=== PATIENT | male | born 1980 | race Caucasian/White ===

== ENCOUNTER 2020-05-23 15:26 | Outpatient (CLI) | payer OTHER, MEDICAID, SELFPAY ==
--- NOTE | ~2020-05-23 | CT_ITS ---
EXAMINATION: CT BRAIN W/O DATE: 05/23/2020 15:44 INDICATION: Headaches TECHNIQUE: Computed tomography (CT) of the head was performed without intravenous contrast. The dose- length product was 605.33 mGy-cm. The mA was adjusted according to patient size. Iterative reconstruc tion technique was employed. COMPARISON: CT dated 04/04/2006 FINDINGS: Normal brain parenchymal volume for age. Normal rosario-white differentiation. No acute intrac ranial hemorrhage, infarction, mass or mass effect. No ventriculomegaly or midline shift. Midline sagittal images demonstrate a normal corpus callosum, c raniovertebral junction and sella turcica. Basilar cisterns are patent. Mild mucosal thickening of the ethmoid and right maxillary sinuses. No depressed skull fractures. IMPRESSION: 1. No acute intracranial abnormality. Reviewed, dictated and finalized at location A. MONITOR
== END 2020-05-23 15:27 | disposition home or self-care (01) ==
PROVIDERS: PCP Physician Assistant; Visit Provider Nurse Practitioner Adult Health
DX: D75.1 Secondary polycythemia (principal); R51.9 Headache, unspecified
CPT/HCPCS: 70450

== ENCOUNTER 2021-04-15 16:24 | Emergency (ER) | payer OTHER, MEDICAID, SELFPAY ==
--- NOTE | 2021-04-15 16:45 | ED.URI ---
HPI - URI/Sore Throat General Chief Complaint: Upper Respiratory Infection Stated Complaint: Sore Throat,Lt Ear Pain,Eye discomfort Time Seen by Provider: 04/15/21 16:45 Source: patient, family, RN notes reviewed and old records reviewed Mode of arrival: ambulatory Limitations: no limitations History of Present Illness HPI Narrative: 41-year-old male presents to the [facility] with mom concern for thrush in his right cheek. Also complains of a sore throat. Is being worked up for acid reflux and currently takes GERD medication. Denies any chest pain or shortness of breath. States occasionally feels like he has a lump in his throat. No abdominal pain, nausea, vomiting or diarrhea. MD elicited complaint: sore throat Related Data Home Medications Medication Instructions Recorded Confirmed pantoprazole 40 mg tablet,delayed 40 mg PO BID 05/03/19 04/15/21 release cholecalciferol (vitamin D3) 10 1,000 unit PO DAILY cap 05/07/20 04/15/21 mcg (400 unit) capsule buspirone 15 mg PO DAILY 04/15/21 04/15/21 citalopram 20 mg PO DAILY 04/15/21 04/15/21 hydrocortisone 10 mg PO DAILY 04/15/21 04/15/21 Allergies Allergy/AdvReac Type Severity Reaction Status Date / Time No Known Allergies Allergy Verified 04/15/21 17:06 Review of Systems Review of Systems: All systems reviewed & are unremarkable except as noted in HPI and below Constitutional: Constitutional: Reports no additional constitutional complaints, Denies chills and Denies fever(s) Eyes: Eyes: Reports no additional eye complaints ENT: Reports as per HPI and Reports sore throat Cardiovascular: Cardiovascular: Reports no additional cardiovascular complaints and Denies chest pain Respiratory: Respiratory: Reports no additional respiratory complaints, Denies cough and Denies dyspnea Gastrointestinal: Gastrointestinal: Reports no additional gastrointestinal complaints, Denies abdominal pain, Denies nausea and Denies vomiting Musculoskeletal: Musculoskeletal: Reports no additional musculoskeletal complaints Integumentary/Breasts: Skin/Breast: Reports system reviewed and no additional complaints, except as docu Neurologic: Reports system reviewed and no additional complaints, except as documented Psychiatric: Psychiatric: Reports no additional psychiatric complaints Allergic/Immunologic: Allergic/Immunologic: Reports no additional allergic/immunologic complaints PMFSH Past Medical History Medical History (Updated 04/15/21 @ 17:10 by Sadie Stallworth) Adult hypothyroidism Back pain Hypopituitarism Lower urinary tract symptoms Osteoporosis Renal disease Testicular hypofunction Thyroid disease Surgical History Surgical History History of cholecystectomy Family History Family History Mother Family history of osteoporosis Family history of migraine headaches Family history of elevated blood lipids Grandparent Family history of blood dyscrasia Family history of migraine headaches Family history of elevated blood lipids Family history of Alzheimer's disease Diabetes mellitus Sibling Family history of mental disorder Depression Family history of migraine headaches Social History Social History Smoking status: Never smoker Spiritual care concerns: No Comments At the time of my signature, I reviewed and agree with the nursing past medical, surgical, social, and family history. There is no relevant family history pertinent to the patient complaint. Exam Const: General: no acute distress, alert and ill appearing chronically Nutritional Appearance: well nourished Orientation/consciousness: patient oriented x3 Limitations: no limitations HENMT: Head: normal to inspection Ears: hearing grossly normal bilaterally, external ears normal, TM's normal bilaterally and EAC's normal General nose exam:
[2021-04-15 16:51] VITALS: BP 131/100; PULSE 101; RESP 20; TEMP 37.1; O2SAT 100
== END 2021-04-15 17:20 | disposition home or self-care (01) ==
PROVIDERS: Emergency Provider Nurse Practitioner; PCP Physician Assistant
DX: B37.0 Candidal stomatitis (principal); K21.9 Gastro-esophageal reflux disease without esophagitis; E03.9 Hypothyroidism, unspecified; M81.0 Age-related osteoporosis without current pathological fracture
CPT/HCPCS: 87081; 87880; 99213; G0463

== ENCOUNTER 2021-04-24 01:34 | Day surgery (SDC) | payer OTHER, MEDICAID, SELFPAY ==
[2021-04-17 14:00] VITALS: BMI 22.4
--- NOTE | 2021-04-24 10:58 | WPDANESEPPF ---
Anes - Initial Pre Proc Eval Procedure: Operation Date: 04/24/21 13:00 Proposed Procedures p Esophagogastroduodenoscopy - Eugenio Latham MD Date/Time: 04/24/21 10:58 Surgeon: Eugenio Latham MD Pre Op Diagnosis: GERD Patient Data Age: 41 Gender: M Height: 1.7 m Weight: 65 kg Allergies Allergy/AdvReac Type Severity Reaction Status Date / Time No Known Allergies Allergy Verified 04/17/21 13:57 Home Medications Medication Instructions Recorded Confirmed Type pantoprazole 40 mg tablet,delayed 40 mg PO BID 05/03/19 04/17/21 History release cholecalciferol (vitamin D3) 10 1,000 unit PO DAILY cap 05/07/20 04/17/21 History mcg (400 unit) capsule syringe with needle 3 mL 22 gauge #100 ea 09/24/20 04/15/21 Rx x 1 syringe with needle, safety 3 mL #100 each 12/05/20 04/15/21 Rx 23 gauge x 1 testosterone cypionate 100 mg/mL 100 mg IM Q14D 30 Days #10 ml 12/13/20 04/17/21 Rx intramuscular oil levothyroxine 50 mcg tablet 50 mcg PO DAILY #90 tablet 03/01/21 04/17/21 Rx buspirone 15 mg PO DAILY 04/15/21 04/17/21 History citalopram 20 mg PO DAILY 04/15/21 04/17/21 History hydrocortisone 10 mg PO DAILY 04/15/21 04/17/21 History nystatin See Rx Instructions .ROUTE 04/15/21 04/17/21 Rx .COMPLEX 7 Days #140 ml Patient hx anesthesia problems: none Family hx anesthesia problems: none Results Review: All pre-operative results and documents have been reviewed as part of the pre-operative evaluation. [facility] Past Medical History Medical History Adult hypothyroidism Back pain Hypopituitarism Lower urinary tract symptoms Osteoporosis Renal disease Testicular hypofunction Thyroid disease Surgical History Surgical History History of cholecystectomy Family History Family History Mother Family history of osteoporosis Family history of migraine headaches Family history of elevated blood lipids Grandparent Family history of blood dyscrasia Family history of migraine headaches Family history of elevated blood lipids Family history of Alzheimer's disease Diabetes mellitus Sibling Family history of mental disorder Depression Family history of migraine headaches Social History Social History Smoking status: Never smoker Substance use type: does not use Living arrangements: with family Spiritual care concerns: No Anes - Eval Final PreProcedure Day of Procedure 04/24/21 10:58 Patient weight: normal Heart: regular rate and rhythm Lungs: clear to auscultation Neurological: alert and oriented Last oral intake: >/= 8 hours ASA classification: III Emergent: no Anesthetic plan: proceed Anesthesia type and monitoring: general GIVS and standard monitoring Results Review: All pre-operative results and documents have been reviewed as part of the pre-operative evaluation. Informed Consent: The patient's anesthetic plan and its attendant risks and benefits were discussed with the patient/family/POA. Questions were solicited and answers provided to the satisfaction of the patient/family/POA.
[2021-04-24 11:02] VITALS: BP 106/77; PULSE 84; RESP 18; TEMP 36.3; O2SAT 100; BMI 22.8
[2021-04-24] MEDS: LACTATED RINGERS 1,000 ML 150 ML IV CONT (11:19)
--- NOTE | 2021-04-24 11:46 | PM.HPGS ---
History of Present Illness History of Present Illness Consent: Risks, benefits, and alternatives have been discussed and questions answered. Patient agrees to proceed with procedure. Chief complaint: GERD Narrative: Dao Modi is a 41 year old male with long standing GERD on pantoprazole bid, had EGD at 17y when first diagnosed. Still breakthrough symptoms. Review of Systems Constitutional: Constitutional: Denies headache(s) and Denies weakness Eyes: Eyes: Denies blurry vision ENT: Reports Normal hearing present, Denies headache(s) and Denies neck pain Cardiovascular: Cardiovascular: Denies chest pain and Denies dyspnea Respiratory: Respiratory: Denies dyspnea Gastrointestinal: Gastrointestinal: Reports no additional gastrointestinal complaints Genitourinary: Genitourinary: Denies dysuria Musculoskeletal: Musculoskeletal: Denies neck pain Integumentary/Breasts: Skin/Breast: Denies dry skin Neurologic: Reports Normal hearing present, Denies headache(s) and Denies weakness Psychiatric: Psychiatric: Denies anxiety Endocrine: Endocrine: Denies change in body appearance Hematologic/Lymphatic: Hematologic/Lymphatic: Denies easy bleeding Allergic/Immunologic: Allergic/Immunologic: Denies urticaria [facility] Past Medical History Medical History (Updated 04/24/21 @ 11:48 by Eugenio Latham MD) Adult hypothyroidism Back pain GERD (gastroesophageal reflux disease) Hypopituitarism Lower urinary tract symptoms Osteoporosis Renal disease Testicular hypofunction Thyroid disease Surgical History Surgical History History of cholecystectomy Family History Family History Mother Family history of osteoporosis Family history of migraine headaches Family history of elevated blood lipids Grandparent Family history of blood dyscrasia Family history of migraine headaches Family history of elevated blood lipids Family history of Alzheimer's disease Diabetes mellitus Sibling Family history of mental disorder Depression Family history of migraine headaches Social History Social History Smoking status: Never smoker Substance use type: does not use Living arrangements: with family Spiritual care concerns: No Meds Home Medications and Allergies Home Medications Medication Instructions Recorded Confirmed Type pantoprazole 40 mg tablet,delayed 40 mg PO BID 05/03/19 04/17/21 History release cholecalciferol (vitamin D3) 10 1,000 unit PO DAILY cap 05/07/20 04/17/21 History mcg (400 unit) capsule syringe with needle 3 mL 22 gauge #100 ea 09/24/20 04/15/21 Rx x 1 syringe with needle, safety 3 mL #100 each 12/05/20 04/15/21 Rx 23 gauge x 1 testosterone cypionate 100 mg/mL 100 mg IM Q14D 30 Days #10 ml 12/13/20 04/17/21 Rx intramuscular oil levothyroxine 50 mcg tablet 50 mcg PO DAILY #90 tablet 03/01/21 04/17/21 Rx buspirone 15 mg PO DAILY 04/15/21 04/17/21 History citalopram 20 mg PO DAILY 04/15/21 04/17/21 History hydrocortisone 10 mg PO DAILY 04/15/21 04/17/21 History nystatin See Rx Instructions .ROUTE 04/15/21 04/17/21 Rx .COMPLEX 7 Days #140 ml Allergies Allergy/AdvReac Type Severity Reaction Status Date / Time No Known Allergies Allergy Verified 04/24/21 11:01 Vital Signs Vital Signs - 24 hr 04/24/21 11:02 Temperature 97.3 F L Pulse Rate 84 Respiratory Rate 18 Blood Pressure 106/77 Pulse Oximetry 100 Exam Const: General: comfortable and no acute distress HENMT: General nose exam: Normal nares present Eyes: General: appearance normal, both eyes and all related structures Neck: Neck: no JVD Resp: Auscultation: clear to auscultation bilaterally Cardio: Rate: regular rate Rhythm: regular rhythm GI: Inspection: non-distended GI Palp: Yes Soft to pa
[2021-04-24 12:04] VITALS: BP 111/77; PULSE 97; RESP 22; O2SAT 96
[2021-04-24 12:14] VITALS: BP 132/81; PULSE 113; RESP 23; O2SAT 96
[2021-04-24 12:24] VITALS: BP 117/83; PULSE 102; RESP 21; O2SAT 100
== END 2021-04-24 12:41 | disposition home or self-care (01) ==
PROVIDERS: PCP Physician Assistant; Visit Provider Internal Medicine Gastroenterology
PROC: 0DJ08ZZ Inspection of Upper Intestinal Tract, Via Natural or Artificial Opening Endoscopic (ICD-10-PCS; CPT 43235; principal; 2021-04-24 13:00)
DX: K21.00 Gastro-esophageal reflux disease with esophagitis, without bleeding (principal); K44.9 Diaphragmatic hernia without obstruction or gangrene; E03.9 Hypothyroidism, unspecified; K21.9 Gastro-esophageal reflux disease without esophagitis; M81.0 Age-related osteoporosis without current pathological fracture; N28.9 Disorder of kidney and ureter, unspecified
CPT/HCPCS: 43239; 88305; J2704; J7120

== ENCOUNTER 2021-12-04 00:37 | Day surgery (SDC) | payer OTHER, MEDICAID, SELFPAY ==
[2021-11-19 13:48] VITALS: BMI 24.6
[2021-12-04 12:12] VITALS: BP 102/80; PULSE 118; RESP 19; TEMP 36.1; O2SAT 100
--- NOTE | 2021-12-04 12:14 | PM.HPGS ---
History of Present Illness History of Present Illness Consent: Risks, benefits, and alternatives have been discussed and questions answered. Patient agrees to proceed with procedure. Chief complaint: esophagitis Narrative: Dao Modi is a 41 year old male with moderate erosive esophagitis 04/2021, taking now protonix bid with pepcid, feeling better Review of Systems Constitutional: Constitutional: Denies headache(s) and Denies weakness Eyes: Eyes: Denies blurry vision ENT: Reports Normal hearing present, Denies headache(s) and Denies neck pain Cardiovascular: Cardiovascular: Denies chest pain and Denies dyspnea Respiratory: Respiratory: Denies dyspnea Gastrointestinal: Gastrointestinal: Reports no additional gastrointestinal complaints Genitourinary: Genitourinary: Denies dysuria Musculoskeletal: Musculoskeletal: Denies neck pain Integumentary/Breasts: Skin/Breast: Denies dry skin Neurologic: Reports Normal hearing present, Denies headache(s) and Denies weakness Psychiatric: Psychiatric: Denies anxiety Endocrine: Endocrine: Denies change in body appearance Hematologic/Lymphatic: Hematologic/Lymphatic: Denies easy bleeding Allergic/Immunologic: Allergic/Immunologic: Denies urticaria [facility] Past Medical History Medical History (Updated 12/04/21 @ 12:15 by Eugenio Latham MD) Adult hypothyroidism Back pain Erosive esophagitis GERD (gastroesophageal reflux disease) Hypopituitarism Lower urinary tract symptoms Osteoporosis Renal disease Testicular hypofunction Thyroid disease Surgical History Surgical History History of cholecystectomy Family History Family History Mother Family history of osteoporosis Family history of migraine headaches Family history of elevated blood lipids Grandparent Family history of blood dyscrasia Family history of migraine headaches Family history of elevated blood lipids Family history of Alzheimer's disease Diabetes mellitus Sibling Family history of mental disorder Depression Family history of migraine headaches Social History Social History Smoking status: Never smoker Alcohol intake: never Substance use: never Substance use type: does not use Living arrangements: with family Spiritual care concerns: No Meds Home Medications and Allergies Home Medications Medication Instructions Recorded Confirmed Type pantoprazole 40 mg tablet,delayed 40 mg PO BID 05/03/19 11/19/21 History release cholecalciferol (vitamin D3) 10 1,000 unit PO DAILY 05/07/20 12/04/21 History mcg (400 unit) capsule syringe with needle, safety 3 mL #100 ea 12/05/20 07/31/21 Rx 23 gauge x 1 (BD Integra Syringe) hydrocortisone 10 mg tablet See Rx Instructions .Route 07/31/21 11/19/21 Rx .COMPLEX #300 tabs syringe with needle 3 mL 22 gauge #50 ea 07/31/21 07/31/21 Rx x 1 (BD Luer-Ave Syringe) testosterone cypionate 100 mg/mL 30 mg (0.3 mL) IM Q7D 30 days #30 07/31/21 11/19/21 Rx intramuscular oil mL levothyroxine 50 mcg tablet 50 mcg PO DAILY #90 tabs 10/01/21 11/19/21 Rx (Synthroid) famotidine 40 mg tablet See Rx Instructions .Route 10/22/21 11/19/21 Rx .COMPLEX #90 tabs Allergies Allergy/AdvReac Type Severity Reaction Status Date / Time No Known Allergies Allergy Verified 12/04/21 12:09 Exam Const: General: comfortable and no acute distress HENMT: General nose exam: Normal nares present Eyes: General: appearance normal, both eyes and all related structures Neck: Neck: no JVD Resp: Auscultation: clear to auscultation bilaterally Cardio: Rate: regular rate Rhythm: regular rhythm GI: Inspection: non-distended GI Palp: Yes Soft to palpation Skin: General skin exam: normal color Neuro: General: gait normal Speech: normal spee
[2021-12-04] MEDS: LACTATED RINGERS 1,000 ML 150 ML IV CONT (12:24)
--- NOTE | 2021-12-04 12:25 | P.PNAN_ITS ---
Anes - Eval Pre Procedure Procedure: Operation Date: 12/04/21 13:30 Proposed Procedures p Esophagogastroduodenoscopy - Eugenio Latham MD Date/Time: 12/04/21 12:25 Pre Op Diagnosis: esophagitis Patient Data Age: 41 Gender: M Height: 1.7 m Weight: 68.8 kg Last Vital Signs Temp 96.9 F L 12/04/21 12:12 Pulse 118 H 12/04/21 12:12 Resp 19 12/04/21 12:12 BP 102/80 12/04/21 12:12 Pulse Ox 100 12/04/21 12:12 O2 Del Method Room Air 12/04/21 12:12 Allergies Allergy/AdvReac Type Severity Reaction Status Date / Time No Known Allergies Allergy Verified 12/04/21 12:09 Home Medications Medication Instructions Recorded Confirmed Type pantoprazole 40 mg tablet,delayed 40 mg PO BID 05/03/19 11/19/21 History release cholecalciferol (vitamin D3) 10 1,000 unit PO DAILY 05/07/20 12/04/21 History mcg (400 unit) capsule syringe with needle, safety 3 mL #100 ea 12/05/20 07/31/21 Rx 23 gauge x 1 (BD Integra Syringe) hydrocortisone 10 mg tablet See Rx Instructions .Route 07/31/21 11/19/21 Rx .COMPLEX #300 tabs syringe with needle 3 mL 22 gauge #50 ea 07/31/21 07/31/21 Rx x 1 (BD Luer-Ave Syringe) testosterone cypionate 100 mg/mL 30 mg (0.3 mL) IM Q7D 30 days #30 07/31/21 11/19/21 Rx intramuscular oil mL levothyroxine 50 mcg tablet 50 mcg PO DAILY #90 tabs 10/01/21 11/19/21 Rx (Synthroid) famotidine 40 mg tablet See Rx Instructions .Route 10/22/21 11/19/21 Rx .COMPLEX #90 tabs Patient hx anesthesia problems: none Family hx anesthesia problems: none Results Review: All pre-operative results and documents have been reviewed as part of the pre- operative evaluation. [facility] Past Medical History Medical History Adrenal insufficiency Adult hypothyroidism Back pain Erosive esophagitis GERD (gastroesophageal reflux disease) Hypopituitarism Lower urinary tract symptoms Osteoporosis Panhypopituitarism Renal disease Testicular hypofunction Thyroid disease Surgical History Surgical History History of cholecystectomy Family History Family History Mother Family history of osteoporosis Family history of migraine headaches Family history of elevated blood lipids Grandparent Family history of blood dyscrasia Family history of migraine headaches Family history of elevated blood lipids Family history of Alzheimer's disease Diabetes mellitus Sibling Family history of mental disorder Depression Family history of migraine headaches Social History Social History Smoking status: Never smoker Alcohol intake: never Substance use: never Substance use type: does not use Living arrangements: with family Spiritual care concerns: No Exam Day of Procedure 12/04/21 12:25 Patient weight: normal Airway: Mallampati scale class II Neurological: alert and oriented
--- NOTE | 2021-12-04 12:29 | P.PNAN_ITS ---
Anes - Eval Final PreProcedure Day of Procedure 12/04/21 12:29 Patient weight: normal Heart: regular rate and rhythm Lungs: clear to auscultation Airway: Mallampati scale class 1 Neurological: alert and oriented Last oral intake: >/= 8 hours ASA classification: III Emergent: no Anesthetic plan: proceed Anesthesia type and monitoring: general GIVS and standard monitoring Results Review: All pre-operative results and documents have been reviewed as part of the pre- operative evaluation. Informed Consent: The patient's anesthetic plan and its attendant risks and benefits were discussed with the patient/family/POA. Questions were solicited and answers provided to the satisfaction of the patient/family/POA.
[2021-12-04 12:43] VITALS: BP 92/59; PULSE 91; RESP 22; O2SAT 99
[2021-12-04 12:53] VITALS: BP 111/58; PULSE 94; RESP 21; O2SAT 97
[2021-12-04 13:03] VITALS: BP 106/63; PULSE 93; RESP 24; O2SAT 100
== END 2021-12-04 13:13 | disposition home or self-care (01) ==
PROVIDERS: PCP Physician Assistant; Visit Provider Internal Medicine Gastroenterology
PROC: 0DJ08ZZ Inspection of Upper Intestinal Tract, Via Natural or Artificial Opening Endoscopic (ICD-10-PCS; CPT 43235; principal; 2021-12-04 13:30)
DX: Z09 Encounter for follow-up examination after completed treatment for conditions other than malignant neoplasm (principal); K21.00 Gastro-esophageal reflux disease with esophagitis, without bleeding; K44.9 Diaphragmatic hernia without obstruction or gangrene; E27.40 Unspecified adrenocortical insufficiency; E03.9 Hypothyroidism, unspecified; E23.0 Hypopituitarism; M81.0 Age-related osteoporosis without current pathological fracture; N28.9 Disorder of kidney and ureter, unspecified; Z90.49 Acquired absence of other specified parts of digestive tract
CPT/HCPCS: 43239; 88305; J2001; J2704; J7120

== ENCOUNTER 2024-10-27 14:37 | Outpatient (CLI) | payer MEDICAID, SELFPAY ==
--- OUTSIDE RECORDS SUMMARY | 2024-10-27 14:40 | XMS_ITS | Encounter Summary ---
Author Organization [facility] Address [address] Attn: [place] [address] Care Team Providers Care Waste Water Operator Name Role Phone Amanda Caba Primary Care Provider [phone] Encounter Details Date Type Department Care Team (Late st Contact Info) Description 10/25/2024 Orders Only Initial Department [address] [place] [address] ATTN: [place] [address] Provider, Historical Social History Tobacco Use Types Packs/Day Years Used Date Smoking Tobacco: Never Smokeless Tobacco: Never Alcohol Use Standard Drinks/Week Comments Yes 0 (1 standard drink = 0.6 oz pur e alcohol) Sex and Gender Information Value Date Recorded Sex Assigned at Male 10/19/2024 3:24 PM CDT Legal Sex Male 8:37 AM CDT Gender Identity Male 10/19/2024 3:24 PM CDT Sexual Orientation Not on file documented as of this encounter Plan of Treatment Upcoming Encounters Date Type Department Care Team (Late st Contact Info) Description 11/03/2024 4:30 PM CDT Telephone Check Up [facility] Oncology and Hematology - [place] [address] [place] [address] [place] [address] [place] [address] [address] [place] [address] 02/16/2025 10:00 AM CDT Office Visit [facility] Oncology and Hematology - [place] [address] [place] [address] Norberto Overton MD [address] [address] documented as of this encounter Procedures Procedure Name Priority Date/Time Associated Diagnosis Comments CBC WITHOUT DIFFERENTIAL Routine 10/25/2024 6:35 AM CDT documented in this encounter Results * (ABNORMAL) CBC WITHOUT DIFFERENTIAL (10/25/2024 6:35 AM CDT) WBC 9.8 3.8 - 10.8 Thousand/u L [facility] RBC 6.72(H) 4.20 - 5.80 Million/uL [facility] HEMOGLOBIN 19.4(H) 13.2 - 17.1 g/dL [facility] Comment: Verified by repeat analysis. HEMATOCRIT 60.1(H) 38.5 - 50.0 % [facility] MCV 89.4 80.0 - 100.0 fL [facility] MCH 28.9 27.0 - 33.0 pg [facility] MCHC 32.3 32.0 - 36.0 g/dL [facility] Comment: For adults, a slight decrease in the calculated MCHC value (in the range of 30 to 32 g/dL) is most likely not clinically significant; however, it should be interpreted with caution in correlation with other red cell parameters and the patient's clinical condition. RDW 13.2 11.0 - 15.0 % [facility] PLATELETS 319 140 - 400 Thousand/u L [facility] MPV 10.0 7.5 - 12.5 fL [facility] Comment: Test Performed at: [facility] [address] [address] Jaylon Ceron MD 10/25/2024 6:35 AM CDT 10/25/2024 6:38 AM CDT Norberto Overton MD HEMATOLOGY ORDERABLES Final Res ult [facility] [phone] [facility] [address] [place] [address] documented in this encounter Visit Diagnoses Not on filedocumented in this encounter Care Teams Waste Water Operator Relationship Specialty Start Date End Date Amanda Caba PA [address] [place] [id number] PCP - General Physician Telephone Plant Power Operator 09/26/19 documented as of this encounter
--- OUTSIDE RECORDS SUMMARY | 2024-10-27 14:40 | XMS_ITS | Encounter Summary ---
Author Organization [facility] Address [address] [place] [address] Care Team Providers Care Field Adjuster Name Role Phone Amanda Caba Primary Care Provider [phone] Encounter Details Date Type Department Care Team (Late st Contact Info) Description 10/27/2024 2:15 PM CDT Office Visit [facility] Oncology and Hematology - [place] [address] [facility] [address] [place] [address] Norberto Overton MD [address] [facility] [address] [place] [address] Hereditary hemochromatosis (Primary Dx); Secondary erythrocytosis; Testosterone deficiency in male Social History Tobacco Use Types Packs/Day Years Used Date Smoking Tobacco: Never Smokeless Tobacco: Never Tobacco Cessation:Counseling Given: Not Answered Alcohol Use Standard Drinks/Week Comments Yes 0 (1 standard drink = 0.6 oz pur e alcohol) Sex and Gender Information Value Date Recorded Sex Assigned at Male 10/19/2024 3:24 PM CDT Legal Sex Male 8:37 AM CDT Gender Identity Male 10/19/2024 3:24 PM CDT Sexual Orientation Not on file documented as of this encounter Last Filed Vital Signs Vital Sign Reading Time Taken Comments Blood Pressure 127/89 10/27/2024 1:59 PM CDT Pulse 93 10/27/2024 1:59 PM CDT Temperature 36.3 C (97.3 F) 10/27/2024 1:59 PM CDT Respiratory Rate 16 10/27/2024 1:59 PM CDT Oxygen Saturation 94% 10/27/2024 1:5 9 PM CDT Inhaled Oxygen Concentration - - Weight 76.8 kg (169 lb 6.4 oz) 10/27/2024 1:59 PM CDT Patient verbally stated that this is the correct weight Height - - Body Mass Index 26.53 10/22/2021 2:47 PM CDT documented in this encounter Plan of Treatment Upcoming Encounters Date Type Department Care Team (Late st Contact Info) Description 11/03/2024 4:30 PM CDT Telephone Check Up [facility] Oncology and Hematology [facility] [address] [place] [address] Norberto Overton MD [facility] [address] [place] [phone] 02/16/2025 10:00 AM CDT Office Visit [facility] Oncology and Hematology [facility] [address] [place] [address] Norberto Overton MD [facility] [place] [phone] Scheduled Orders Name Type Priority Associated Diagnoses Orde r Schedule FERRITIN Lab Routine Hereditary hemochromatosis Expected: 10/27/2024, Expires: 10/27/2025 IRON, TIBC, AND PERCENT SATURATION Lab Routine Hereditary hemochromatosis Expected: 10/27/2024, Expires: 10/27/2025 TESTOSTERONE FREE AND TOTAL Lab Routine Testosterone deficiency in male Expected: 10/27/2024, Expires: 10/27/2025 FERRITIN Lab Routine Hereditary hemochromatosis Expected: 01/19/2025, Expires: 10/27/2025 IRON, TIBC, AND PERCENT SATURATION Lab Routine Hereditary hemochromatosis Expected: 01/19/2025, Expires: 10/27/2025 CBC WITHOUT DIFFERENTIAL Lab Stat Hereditary hemochromatosis Expected: 01/19/2025, Expires: 10/27/2025 documented as of this encounter Visit Diagnoses Diagnosis Hereditary hemochromatosis- Primary Secondary erythrocytosis Polycythemia, secondary Testosterone deficiency in male documented in this encounter Care Teams Field Adjuster Relationship Specialty Start Date End Date Amanda Caba PA [address] [place] [address] PCP - General Physician Clay Grinder 09/26/19 documented as of this encounter
--- OUTSIDE RECORDS SUMMARY | 2024-10-27 14:40 | XMS_ITS | Clinical Summary ---
Author Organization [facility] Anshul Wells Address [address] [place] [address] Care Team Providers Care Merchant Patroller Name Role Phone Amanda Caba Primary Care Provider [phone] Allergies Active Allergy Reactions Criticality Noted Date Comments Iodinated Contrast Media Hives High 05/16/2020 Medications hydrocortisone (CORTEF) 10 mg tablet TAKE 2 TABLETS BY MOUTH IN THE MORNING ,AND TAKE 1 TABLET IN THE EVENING 07/28/19 20 Active SYNTHROID 50 mcg tablet Take 1 pill 6 days/week and 1/2 pill 1 day a week. 08/10/19 20 Active pantoprazole (PROTONIX) 40 mg Tablet, Delayed Release (E.C.) Take 40 mg by mouth. Take two tablets daily 08/03/19 20 Active cholecalcifero l, Vitamin D3, (VITAMIN D3) 25 mcg (1,000 unit) Capsule Take 4,000 Units by mouth. Pt taking 1-2 pills daily. Active BD Luer-Ave Syringe 3 mL 22 gauge x 1 Syringe USE ONE SYRINGE EVERY 2 WEEKS WITH TESTOSTERONE INJECTIONS. 09/01/19 21 Active testosterone cypionate (DEPO-TESTOSTE LUBNA) 100 mg/mL Oil INJECT 0.15ML (15MG) INTRAMUSCULARLY ONCE WEEKLY 09/11/19 21 Active famotidine (PEPCID) 40 mg tablet Take 40 mg by mouth daily at bedtime. 07/24/19 22 Active Active Problems Problem Noted Date Diagnosed Date Hereditary hemochromatosis 10/22/2021 Secondary erythrocytosis 05/16/2020 Testosterone deficiency in male 05/16/2020 Encounters Date Type Department Care Team Description 10/27/2024 2:15 PM CDT Office Visit [facility] Oncology and Hematology - [place] [address] [place] [address] Norberto Overton MD Hereditary hemochromatosis (Primary Dx); Secondary erythrocytosis; Testosterone deficiency in male 10/25/2024 Orders Only Initial Department [address] [facility] ATTN: [place] [address] Provider, Historical from Last 3 Months Family History Relation Name Status Comments Father Alive Mother Alive Sister 1 Alive Sister 2 Alive Social History Tobacco Use Types Packs/Day Years [...] PM CDT Sexual Orientation Not on file Last Filed Vital Signs Vital Sign Reading [...] that this is the correct weight Height 170.2 cm (5' 7) 10/22/2021 2:47 PM CDT Body Mass Index 26.53 10/22/2021 2:47 PM CDT Plan of Treatment Upcoming Encounters Date Type Department Care Team (Late st Contact Info) Description 11/03/2024 4:30 PM CDT Telephone Check Up [facility] Oncology and Hematology - [place] [address] [place] [address] Norberto Overton MD [address] [place] [address] 02/16/2025 10:00 AM CDT Office Visit [facility] Oncology and Hematology [facility] [address] [place] [address] Norberto Overton MD [address] [facility] [address] [place] [address] Health Maintenance Due Date Last Done Comments DTAP/TDAP/TD VACCINES (1 - Tdap) 1998 HEPATITIS B VACCINES (1 of 3 - 19+ 3-dose series) 1998 Preventative Visit-Managed Medicaid 1998 INFLUENZA VACCINE (#1) 2023 1, 04/23/2020 COLORECTAL SCREENING 2024 Colorectal Cancer Screening 2024 FIT-DNA Q 3 years 2024 FIT/FOBT Q 1 year 2024 Flex Sig/CT Colonography Q 5 years 2024 HPV VACCINES Aged Out No longer eligi ble based on patient's age to complete this topic Procedures Procedure Name Priority Date/Time Associated Diagnosis Comments CBC WITHOUT DIFFERENTIAL Routine 10/25/2024 6:35 AM CDT from Last 3 Months Results * (ABNORMAL) CBC WITHOUT DIFFERENTIAL (10/25/2024 [...] [facility] Comment: Test Performed at: [facility] [address] [id number] Jaylon Ceron MD 10/25/2024 6:35 AM CDT 10/25/2024 6:38 AM CDT us Norberto Overton MD HEMATOLOGY ORDERABLES Final Res ult [facility] [phone] [facility] [id number] [address] [phone] from Last 3 Months Insurance [employer] [place] Care Teams Merchant Patroller Relationship Specialty Start Date End Date Amanda Caba PA [address] [place] [phone] PCP - General Physician Wood Type Cutter 09/26/19
[2024-10-27 17:17] LABS: Iron 105 ug/dL (49-181)
[2024-10-27 17:27] LABS: Percent Iron Saturation 28 % (20-50)
[2024-11-01 10:57] LABS: Testosterone Free 127.7 pg/mL (35.0-155.0); Testosterone Total 843 ng/dL (250-1100)
== END 2024-10-27 14:38 | disposition home or self-care (01) ==
LOC: ANHLAB 14:38
PROVIDERS: PCP Physician Assistant; Visit Provider Internal Medicine Hematology & Oncology
DX: E83.110 Hereditary hemochromatosis (principal)
CPT/HCPCS: 36415; 82728; 83540; 83550; 84402; 84403